=== PATIENT | female | born 1990 | race Caucasian/White ===

== ENCOUNTER → 2023-06-02 10:55 | Outpatient (BNVA) | payer BC, SELFPAY | PROVIDERS: Visit Provider Emergency Medicine | DX: S92.534A Nondisplaced fracture of distal phalanx of right lesser toe(s), initial encounter for closed fracture (principal); X58.XXXA Exposure to other specified factors, initial encounter; M79.671 Pain in right foot | CPT/HCPCS: 73630 ==